=== PATIENT | female | born 1970 | race Caucasian/White ===

== ENCOUNTER → 2017-07-13 | Outpatient (CLI) | payer BC ==
[~2017-07-13] MED LIST: MULT-506 PO
--- NOTE | 2017-07-13 16:41 | MAMMOGRAPHY REPORT ---
BILATERAL DIGITAL SCREENING MAMMOGRAM TOMOSYNTHESIS WITH CAD: 07/13/2017 CLINICAL HISTORY: Routine screening. TECHNIQUE: Breast tomosynthesis in addition to standard 2D mammography was performed. Current study was also evaluated with a Computer Aided Detection (CAD) system. COMPARISON: Comparison is made to exams dated: 07/08/2015 mammogram, 07/09/2016 mammogram, 07/05/2014 ma mmogram, 06/27/2012 mammogram, 06/24/2011 mammogram, and 05/27/2010 mammogram - [facility]. BREAST COMPOSITION: The tissue of both breasts is heterogeneously dense, which may obscure small mas ses. FINDINGS: There is stable asymmetry in the medial left breast. A benign rim calcification in the lef t superior breast. No suspicious mass, architectural distortion or cluster of suspicious microcalcif ications is seen. IMPRESSION: ACR BI-RADS CATEGORY 1: NEGATIVE There is no mammographic evidence of malignancy. A 1 year screening mammogram is recommended. The pa tient will receive written notification of the results. Approximately 10% of breast cancers are not detected with mammography. A negative mammographic report should not delay biopsy if a clinically suggestive mass is present. Ely Bains M.D. ay/:07/13/2017 15:46:43 Airline Stewardess: Vitor CHANG(Leanna)(Wilfred), [facility] letter sent: Normal 1/2 BI-RADS Code: ACR BI-RADS Category 1: Negative
== END | disposition home or self-care (01) ==
LOC: C.MAMM 09:49
PROVIDERS: ATTEND Obstetrics & Gynecology
DX: Z12.31 Encounter for screening mammogram for malignant neoplasm of breast (principal)

== ENCOUNTER → 2017-07-21 | Outpatient (CLI) | payer BC | END | disposition home or self-care (01) | LOC: C.PAPS 13:31 | PROVIDERS: ATTEND Obstetrics & Gynecology | DX: Z01.419 Encounter for gynecological examination (general) (routine) without abnormal findings (principal) ==

== ENCOUNTER → 2017-08-16 | Outpatient (CLI) | payer BC ==
[2017-08-16 11:47] LABS: BASO % 0.3 %; BASO ABS # 0.03 K/uL (0-0.2); COMPLETE YES; EOS % 1.1 %; HEMATOCRIT 36.7 % (37-47); IG% 0.1 %; LYMPH % 22.5 %; LYMPH ABS # 2.01 K/uL (1.2-3.4); MEAN PLATELET VOLUME 9.4 fL (7.4-10.4); MONO % 7.2 %; NEUT % 68.8 %; PLATELET COUNT 320 K/uL (130-400); RED BLOOD COUNT 4.32 M/uL (4.2-5.4); WHITE BLOOD COUNT 8.93 K/uL (4.8-10.8)
[2017-08-16 11:58] LABS: BLOOD UREA NITROGEN 14 mg/dl (7-18); BUN/CREATININE RATIO 22.6 (10-20); CALCIUM 8.8 mg/dl (8.5-10.1); CARBON DIOXIDE 27 mmol/L (21-32); CHLORIDE 106 mmol/L (98-107); CREATININE 0.63 mg/dl (0.60-1.20); GLUCOSE 98 mg/dl (70-99); POTASSIUM 4.1 mmol/L (3.5-5.1); SODIUM 140 mmol/L (136-145)
[2017-08-16 12:08] LABS: CHOLESTEROL 172 mg/dl (0-200); CHOLESTEROL/HDL RATIO 2.1; HDL CHOLESTEROL 82 mg/dl; LDL CHOLESTEROL CALCULATED 77 mg/dl; TRIGLYCERIDES 67 mg/dl (0-150); VERY LOW DENSITY LIPOPROT CALC 13 mg/dl
== END | disposition home or self-care (01) ==
LOC: C.LABPBG 09:24
PROVIDERS: ATTEND Physician Assistant Medical
DX: Z00.00 Encounter for general adult medical examination without abnormal findings (principal)

== ENCOUNTER → 2017-10-27 | Outpatient (CLI) | payer BC | END | disposition home or self-care (01) | LOC: C.PATHSPEC 13:16 | PROVIDERS: ATTEND Obstetrics & Gynecology | DX: L98.9 Disorder of the skin and subcutaneous tissue, unspecified (principal) ==

== ENCOUNTER 2018-07-01 08:03 | Emergency (ER) | payer BC ==
[~2018-07-01] VITALS: Ht 165.1 cm; Wt 56.0 kg
[2018-07-01 08:07] VITALS: TEMP 36.7; Ht 165.1 cm; Wt 56.0 kg
[2018-07-01] MEDS ORDERED: ONDANSETRON INJ 2 MG/ML 2 ML VIAL IV STA ×2 (08:21→09:27)
[2018-07-01] MEDS ORDERED: HYDROmorphone INJ 0.5 MG/0.5 ML SYR IV STA (08:21)
[2018-07-01 09:00] LABS: BASO % 0.3 %; BASO ABS # 0.02 K/uL (0-0.2); EOS ABS # 0.13 K/uL (0-0.5); HEMOGLOBIN 12.3 g/dL (12.0-16.0); IG# 0.01 K/uL (0.00-0.02); LYMPH % 34.2 %; LYMPH ABS # 2.17 K/uL (1.2-3.4); MEAN CELL VOLUME 85.8 fL (80-100); MEAN CORPUSCULAR HEMOGLOBIN 27.8 pg (25-34); MEAN CORPUSCULAR HGB CONC 32.4 g/dl (32-36); MEAN PLATELET VOLUME 9.1 fL (7.4-10.4); MONO % 8.8 %; MONO ABS # 0.56 K/uL (0.11-0.59); NEUT % 54.5 %; NEUT ABS # 3.46 K/uL (1.4-6.5); PLATELET COUNT 231 K/uL (130-400); RED CELL DISTRIBUTION WIDTH SD 40.8 fL (36.4-46.3); WHITE BLOOD COUNT 6.35 K/uL (4.8-10.8)
[2018-07-01] MEDS ORDERED: ASPI-390 PO (09:06)
[2018-07-01 09:16] LABS: CALCIUM 9.3 mg/dl (8.5-10.1); CREATININE 0.67 mg/dl (0.60-1.20); POTASSIUM 3.8 mmol/L (3.5-5.1)
[2018-07-01] MEDS ORDERED: METOCLOPRAMIDE HCL INJ 5 MG/ML 2 ML VIAL IV STA (10:18)
[2018-07-01] MEDS ORDERED: DiphenhydrAMINE HCL 50 MG/ML VIAL IV STA (10:18)
[2018-07-01] MEDS ORDERED: GADAVIST IV PRN (11:00)
--- NOTE | 2018-07-01 11:23 | DIAGNOSTIC IMAGING REPORT ---
LUMBAR SPINE COMBINATION CLINICAL HISTORY: 48 years-old Female presenting with severe left leg pain, foot numbness, left leg pain radiating into the tailbone, left foot numbness for 4 weeks now increasing. TECHNIQUE: Multisequence, multiplanar MR imaging of the lumbar spine was performed before and after the administration of intravenous contrast. IV contrast: 5.5 mL of Gadavist. COMPARISON: None. FINDINGS: Localizer images: Cyst suggested of the spinal canal at the level of L4-5. Hepatic cysts noted. At the level of L4-5, there is a T1 hypointense, T2 hyperintense intrathecal cystic lesion measuring 3.1 x 1.8 x 1.6 cm. This is peripherally enhancing but largely cystic. The wall of this cyst doesn't enhance and measures up to 3 mm in thickness (series 10 image 22). This does not contain fat. This exerts mass effect on surrounding nerve roots resulting in displacement of the cauda equina peripherally. 6 mm of grade 1 anterolisthesis of L4 on L5. Otherwise normal lordosis. Vertebral bodies maintain normal height and bone marrow signal intensity. Intervertebral disc height loss with desiccation at L4-5. At this level, there is an annular fissure with a superiorly directed disc bulge. This does not result in significant spinal canal effacement. Anterolisthesis combined with mild facet arthropathy results in mild bilateral neural foraminal narrowing. Remaining levels do not demonstrate significant degenerative change. Spinal cord in setting good position at the level of L1. Cauda equina normal apart from this placement at the level of the L4-5 cyst. Postcontrast imaging demonstrates no abnormal enhancement of the cauda equina. Remaining visualized soft tissues remarkable for nonspecific subcutaneous edema in the lumbar region. IMPRESSION: Largely cystic intrathecal lesion at the level of L4-5 with resulting significant displacement of the cauda equina. Correlate clinically to exclude cauda equina impingement though this is felt to be unlikely given the suspected chronicity of this cystic lesion. The degree of peripheral wall enhancement is greater than would be expected for a simple spinal arachnoid cyst. Given that this level also demonstrates anterolisthesis with facet arthropathy, it is possible that this could represent an intradural extension of a synovial cyst. Additionally, other diagnostic considerations include an epidermoid cyst or a cystic neoplasm. This requires neurosurgical consultation and potential imaging follow-up. The report will be called/faxed according to standard departmental protocol. Electronically signed by: Jorge Valenzuela M.D. 07/01/2018 11:22 AM Dictated Date/Time: 07/01/2018 11:07 AM
[2018-07-01] MEDS ORDERED: ONDA4TAB10 SL (13:18)
[2018-07-01] MEDS ORDERED: OXYC-90 PO (13:18)
[2018-07-01 13:34] VITALS: BP 111/70; PULSE 60; O2SAT 98
--- NOTE | 2018-07-01 17:16 | EMERGENCY ROOM VISIT NOTE ---
History Report prepared by Jaron: Laya Lowry Under the Supervision of: Dr. Martin Clark M.D. First contact with patient: 08:10 Chief Complaint: LEG PAIN,LEG INJURY Stated Complaint: SEVERE LEG AND TAILBONE PAIN History of Present Illness The patient is a 48 year old female who presents to the Emergency Room with complaints of worsening left leg pain that onset in the end of May. The patient states that 2 days before the pain began she was sitting on a hardwood floor which started her pain, but notes that the pain went away soon after. She notes that the next day she woke up and couldn't walk. She states that recently the pain has been keeping her awake at night. The patient notes that she saw her PCP on 06/13/2018, who suggested she attend physical therapy. The patient notes that the pain originates in her back left leg and "shoots" into her tailbone. She currently rates this pain as an 8/10 in severity, but notes that that its worst, it is rated a 10/10. She describes this as a pulling and tearing pain. She states that laying down and exertion during physical therapy exacerbates the pain. The patient notes that sitting upright and Excedrin Migraine alleviates the pain. The patient complains of numbness on the outside of her foot in her toes, nausea, occasional weakness, chills that onset yesterday, a slight increase in urination frequency, and left sided tooth pain. The patient denies trauma, LOC, headache, neck pain, fevers, malaise, night sweats, weight loss, history of malignancy, chest pain, breathing difficulties, abdominal pain, saddle parasthesias, lower back pain, right leg pain, bowel or bladder dysfunction, incontinence, or other complaints. She notes that she took Excedrin and Tylenol today to "take the edge off". The patient notes that she has a history of heart palpitations. She denies any surgeries. Source of History: patient Onset: End may Position: leg (left) Symptom Intensity: Currently an 8/10, at the worst is a 10/10 Quality: other (pulling and tearing) Timing: worsening Modifying Factors (Worsening): exertion, other (laying flat ) Modifying Factors (Relieving): other (Sitting up, Excedrin) Associated Symptoms: + chills, + nausea, + urinary symptoms (increased frequency), + weakness, + numbness (outside of food in toes) Note: The patient complains of left sided tooth pain. Review of Systems See HPI for pertinent positives and negatives. A total of ten systems were reviewed and were otherwise negative. Past Medical & Surgical Medical Problems: (1) Palpitations Family History FH: HTN (hypertension) FH: cancer FH: diabetes mellitus FH: heart disease FH: seizures Social History Smoking Status: Never Smoker Alcohol Use: none Housing Status: lives with family Occupation Status: employed Current/Historical Medications Scheduled Ondasetron Odt (Zofran Odt), 4 MG SL Q6H Scheduled PRN Pkaebqf-Pgfchkpfwpzwn-Yftifyna (Excedrin Migraine), 1 TAB PO DIRECTED PRN for Migraine Oxycodone Ir (Roxicodone Ir), 1-2 TAB PO Q4H PRN for Pain Allergies Coded Allergies: No Known Allergies (Verified , 07/17/11) Physical Exam Vital Signs Date Time Temp Pulse Resp B/P (MAP) Pulse Ox O2 Delivery O2 Flow Rate FiO2 07/01/18 13:34 60 18 111/70 98 07/01/18 12:05 53 16 103/62 99 Room Air 07/01/18 10:55 65 18 116/72 99 Room Air 07/01/18 08:49 95 07/01/18 08:07 36.7 65 16 130/79 100 Room Air Physical Exam GENERAL: Awake, alert, well-appearing, in no distress HENT: Normocephalic, atraumatic. Oropharynx unremarkable. EYES: Normal conjunctiva. Sclera non-icteric. NECK: Supple. No nuchal rigidity. FROM. No masses. RESPIRATORY: Clear to auscultation. No wheezes. No rales. Normal respiratory effort. CARDIAC: Normal rate. Normal rhythm. No murmurs. No rubs. Extremities warm and well perfused. Pulses equal. No JVD. GI: Soft, non-distended. No tenderness to palpation. No rebound or guarding. No masses. RECTAL: Deferred. MUSCULOSKELETAL: Atraumatic. Chest examination reveals no tenderness. The back is symmetrical on inspection without obvious abnormality. There is no CVA tenderness to palpation. No joint edema. LOWER EXTREMITIES: Calves are equal size bilaterally and non-tender. No edema. No discoloration. NEURO: Subjective tingling in her left lateral foot, otherwise normal sensorium. No sensory or motor deficits noted. Positive left straight leg raise. No saddle anesthesia. SKIN: No rash or jaundice noted. Medical Decision & Procedures ER Provider Diagnostic Interpretation: Radiology results as stated below per my review and radiologist interpretation: LUMBAR SPINE COMBINATION CLINICAL HISTORY: 48 years-old Female presenting with severe left leg pain, foot numbness, left leg pain radiating into the tailbone, left foot numbness for 4 weeks now increasing. TECHNIQUE: Multisequence, multiplanar MR imaging of the lumbar spine was performed before and after the administration of intravenous contrast. IV contrast: 5.5 mL of Gadavist. COMPARISON: None. FINDINGS: Localizer images: Cyst suggested of the spinal canal at the level of L4-5. Hepatic cysts noted. At the level of L4-5, there is a T1 hypointense, T2 hyperintense intrathecal cystic lesion measuring 3.1 x 1.8 x 1.6 cm. This is peripherally enhancing but largely cystic. The wall of this cyst doesn't enhance and measures up to 3 mm in thickness (series 10 image 22). This does not contain fat. This exerts mass effect on surrounding nerve roots resulting in displacement of the cauda equina peripherally. 6 mm of grade 1 anterolisthesis of L4 on L5. Otherwise normal lordosis. Vertebral bodies maintain normal height and bone marrow signal intensity. Intervertebral disc height loss with desiccation at L4-5. At this level, there is an annular fissure with a superiorly directed disc bulge. This does not result in significant spinal canal effacement. Anterolisthesis combined with mild facet arthropathy results in mild bilateral neural foraminal narrowing. Remaining levels do not demonstrate significant degenerative change. Spinal cord in setting good position at the level of L1. Cauda equina normal apart from this placement at the level of the L4-5 cyst. Postcontrast imaging demonstrates no abnormal enhancement of the cauda equina. Remaining visualized soft tissues remarkable for nonspecific subcutaneous edema in the lumbar region. IMPRESSION: Largely cystic intrathecal lesion at the level of L4-5 with resulting significant displacement of the cauda equina. Correlate clinically to exclude cauda equina impingement though this is felt to be unlikely given the suspected chronicity of this cystic lesion. The degree of peripheral wall enhancement is greater than would be expected for a simple spinal arachnoid cyst. Given that this level also demonstrates anterolisthesis with facet arthropathy, it is possible that this could represent an intradural extension of a synovial cyst. Additionally, other diagnostic considerations include an epidermoid cyst or a cystic neoplasm. This requires neurosurgical consultation and potential imaging follow-up. The report will be called/faxed according to standard departmental protocol. Electronically signed by: Jorge Valenzuela M.D. 07/01/2018 11:22 AM Dictated Date/Time: 07/01/2018 11:07 AM Laboratory Results 07/01/18 08:43 Red Blood Count 4.43, Mean Corpuscular Volume 85.8, Mean Corpuscular Hemoglobin 27.8, Mean Corpuscular Hemoglobin Concent 32.4, Mean Platelet Volume 9.1, Neutrophils (%) (Auto) 54.5, Lymphocytes (%) (Auto) 34.2, Monocytes (%) (Auto) 8.8, Eosinophils (%) (Auto) 2.0, Basophils (%) (Auto) 0.3, Neutrophils # (Auto) 3.46, Lymphocytes # (Auto) 2.17, Monocytes # (Auto) 0.56, Eosinophils # (Auto) 0.13, Basophils # (Auto) 0.02 07/01/18 08:43 Test 07/01/18 08:43 White Blood Count 6.35 K/uL (4.8-10.8) Red Blood Count 4.43 M/uL (4.2-5.4) Hemoglobin 12.3 g/dL (12.0-16.0) Hematocrit 38.0 % (37-47) Mean Corpuscular Volume 85.8 fL (80-100) Mean Corpuscular Hemoglobin 27.8 pg (25-34) Mean Corpuscular Hemoglobin Concent 32.4 g/dl (32-36) Platelet Count 231 K/uL (130-400) Mean Platelet Volume 9.1 fL (7.4-10.4) Neutrophils (%) (Auto) 54.5 % Lymphocytes (%) (Auto) 34.2 % Monocytes (%) (Auto) 8.8 % Eosinophils (%) (Auto) 2.0 % Basophils (%) (Auto) 0.3 % Neutrophils # (Auto) 3.46 K/uL (1.4-6.5) Lymphocytes # (Auto) 2.17 K/uL (1.2-3.4) Monocytes # (Auto) 0.56 K/uL (0.11-0.59) Eosinophils # (Auto) 0.13 K/uL (0-0.5) Basophils # (Auto) 0.02 K/uL (0-0.2) RDW Standard Deviation 40.8 fL (36.4-46.3) RDW Coefficient of Variation 13.0 % (11.5-14.5) Immature Granulocyte % (Auto) 0.2 % Immature Granulocyte # (Auto) 0.01 K/uL (0.00-0.02) Urine Color YELLOW Urine Appearance CLEAR (CLEAR) Urine pH 5.0 (4.5-7.5) Urine Specific [place] 1.018 (1.000-1.030) Urine Protein NEG (NEG) Urine Glucose (UA) NEG (NEG) Urine Ketones NEG (NEG) Urine Occult Blood NEG (NEG) Urine Nitrite NEG (NEG) Urine Bilirubin NEG (NEG) Urine Urobilinogen NEG (NEG) Urine Leukocyte Esterase TRACE (NEG) Urine WBC (Auto) 1-5 /hpf (0-5) Urine RBC (Auto) 0-4 /hpf (0-4) Urine Hyaline Casts (Auto) 1-5 /lpf (0-5) Urine Epithelial Cells (Auto) >30 /lpf (0-5) Urine Bacteria (Auto) NEG (NEG) Anion Gap 7.0 mmol/L (3-11) Est Creatinine Clear Calc Drug Dose 90.8 ml/min Estimated GFR () 120.5 Estimated GFR (Non- 103.9 BUN/Creatinine Ratio 23.5 (10-20) Calcium Level 9.3 mg/dl (8.5-10.1) Laboratory results reviewed by me Medications Administered Medications (Trade) Dose Ordered Sig/Chi Route Start Time Stop Time Status Last Admin Dose Admin Ondansetron HCl (Zofran Inj) 4 mg NOW STAT IV 07/01/18 08:21 07/01/18 08:32 DC 07/01/18 08:54 4 MG Hydromorphone HCl (Dilaudid Inj) 0.5 mg NOW STAT IV 07/01/18 08:21 07/01/18 08:32 DC 07/01/18 08:55 0.5 MG Ondansetron HCl (Zofran Inj) 4 mg NOW STAT IV 07/01/18 09:27 07/01/18 09:29 DC 07/01/18 09:36 4 MG Diphenhydramine HCl (Benadryl Inj) 25 mg NOW STAT IV 07/01/18 10:18 07/01/18 10:20 DC 07/01/18 10:30 25 MG Metoclopramide HCl (Reglan Inj) 5 mg NOW STAT IV 07/01/18 10:18 07/01/18 10:20 DC 07/01/18 10:30 5 MG ED Course 0816: The patient was evaluated in room A02. A complete history and physical exam was performed. 08: Ordered Zofran Inj 4 mg IV, Dilaudid Inj 0.5 mg IV. 0926: The patient reports nausea. Will give Zofran. 0927: Ordered Zofran Inj 4 mg IV. 1017: The patient got nauseous in MRI despite the Zofran. Will Order Benadryl and Reglan. 1018: Ordered Reglan Inj 5 mg IV, Benadryl Inj 25 mg IV. 1035: Upon reexamination, the patient was resting comfortably. I discussed the test results and treatment plan with her. The patient will be evaluated for further management. 1100: Ordered Gadavist 5.5 mmol IV. 1128: Upon reexamination, the patient was resting comfortably. I discussed the test results and treatment plan with her. The patient will be evaluated for further management. 1137: Discussed the patient's case with Dr. Ho- [facility]. He recommended a neuro surgery consultation. 1210: I updated the patient and discussed the findings with her. She initially requested neurosurgery at [place]. I will see if they are available. 1237: Discussed the patient's case with Dr. Cuevas- Neuro Surgery [place]. He will see her on Wednesday at 0900, unless something changes. 1249: I reevaluated the patient. Discussed results and discharge instructions: she verbalized understanding and agreement. The patient is ready for discharge. Medical Decision Prior records/ancillary studies reviewed. Triage Nursing notes reviewed and agree them. Additional history obtained from the family. The patient's history was concerning for back pain. Differential diagnosis: Etiologies such as fracture, aortic disease, metastatic disease, cord compression, discitis, infection, renal colic, gastrointestinal, lumbago, sciatica, cauda equina, as well as others were entertained. Physical findings: As above. Mildly positive straight leg raise. ER treatment provided: IV Dilaudid IV Zofran times multiple doses Patient was having nausea during MRI Benadryl and Reglan On reassessment the patient felt better. Diagnostics interpreted by me: The labs revealed an unremarkable CBC and chemical panel. Urinalysis negative. Imaging studies: MRI as above. Consultation: I did discuss case with of orthopedic spine. Because the lesion was intrathecal he felt that the patient would be best served by neurosurgery. I did consult with Dr. Parker starks [facility] neurosurgery. I did discuss the case, history, and diagnostic findings. The recommendation was for symptom [id number] and to follow-up promptly in his office Wednesday morning at 9 AM. He advised to educate the patient for any worsening signs and symptoms symptoms to suggest cauda equina syndrome and for her to return to ER immediately for any such symptoms. The patient was educated. She feels comfortable with going home. Because she has had issues with nausea from narcotics in the past the patient was given a prescription of Zofran and shows oxycodone since she had significant nausea and vomiting with hydrocodone in the past. By the evaluation outlined above other emergent etiologies such as those listed in the differential, as well as others, were deemed relatively unlikely. The patient was educated about the findings as listed above. All questions were answered and the patient was pleased with the treatment. Return instructions were outlined and the patient was discharged in stable condition. The patient was referred to neurosurgery for follow-up for a recheck of the current condition. Medication Reconcilliation Current Medication List: was personally reviewed by me Blood Pressure Screening Patient's blood pressure: Normal blood pressure Consults Time Called: [phone] Consulting Physician: Dr. Kvng [facility]. Returned Call: [phone]: Discussed the patient's case with Dr. Kvng [facility]. He recommended a neuro surgery consultation. Additional Consults: Time Called: [phone] Consulted Physician: Dr. Kuldip Kim Returned Call: [phone] Additional Comments: 1237: Discussed the patient's case with Dr. Kuldip Kim. He will see her on Wednesday at 0900, unless something changes. Impression Primary Impression: intrathecal cystic lesion Additional Impressions: Leg pain Leg numbness Scribe Attestation The scribe's documentation has been prepared under my direction and personally reviewed by me in its entirety. I confirm that the note above accurately reflects all work, treatment, procedures, and medical decision making performed by me. Departure Information Dispostion Home / Self-Care Prescriptions Ondasetron Odt (ZOFRAN ODT) 4 Mg Tab 4 MG SL Q6H for Nausea, #10 TAB Prov: Martin Clark MD 07/01/18 Oxycodone Ir (Roxicodone Ir) 5 Mg Tab 1-2 TAB PO Q4H Y for Pain, #15 TAB Prov: Martin Clark MD 07/01/18 Referrals Nadeem Arellano M.D. (PCP) Forms HOME CARE DOCUMENTATION FORM, IMPORTANT VISIT INFORMATION Patient Instructions My [facility] Additional Instructions DO NOT drive, drink alcohol, operate machinery, or perform dangerous activities today. You were given medications in the ER that can affect your ability to safely function or operate a vehicle. Oxycodone (OxyIR) 5mg: Take 1-2 pills every four hours for breakthrough pain. Avoid alcohol, operating machinery or dangerous equipment, working on ladders or roofs, DRIVING, or situations where being under the influence may be dangerous. It is recommended to use an ezxe-rtz-rjaufcl stool softener such as Colace, 100mg twice daily while taking this medication to avoid constipation. Zofran 4 mg oral dissolving tablets: take one tablet and allow it to melt in your mouth every 4 hours as needed for nausea. Ibuprofen(Motrin, Advil) may be used for fever or pain. Use 600mg every six hours as needed. Take with food. Avoid using more than 2400mg in a 24 hour period. Do not use 2400mg per day for more than three consecutive days without physician direction. Prolonged inappropriate use can lead to stomach upset or ulcers. This medication can be taken if you need to drive, work, or perform activities which may be dangerous when taking narcotic pain medication. (AND/OR) Acetaminophen(Tylenol) may be used for fever or pain. Use 1000mg every six hours as needed. Avoid using more than 4000mg in a 24 hour period. This medication can be taken if you need to drive, work, or perform activities which may be dangerous when taking narcotic pain medication. Rest and avoid heavy lifting until your symptoms resolve and then gradually return to full activity. A good rule of thumb is if it hurts your back to perform a certain activity, then it should be avoided until you are healthy again. A heating pad, warm compresses, or a hot shower may help with tight muscles and can be done several times a day as needed. Continue current medications. Return to the ER immediately for any numbness, tingling, severe pain, loss of control of your bowels or bladder, inability to walk, or as needed. Follow up with Dr. Canales of [place] neurosurgery Wednesday morning at 9 AM. His office phone number is [phone]. You can call them today for directions and further instructions. Take your imaging with you for the appointment. Problem Qualifiers
[2018-07-02] MEDS ORDERED: ACET-1311 PO (14:50)
[2018-07-02] MEDS ORDERED: IMETREX PO (14:50)
[2018-07-02] MEDS ORDERED: NRN/100 PO (19:02)
[2018-07-02] MEDS ORDERED: METH4PAK PO (19:02)
== END 2018-07-01 13:35 | disposition home or self-care (01) ==
LOC: C.EDB 08:03 → C.EDA 13:35
DX: G95.9 Disease of spinal cord, unspecified (principal); M79.605 Pain in left leg; R20.0 Anesthesia of skin; Z83.3 Family history of diabetes mellitus

== ENCOUNTER 2018-07-02 13:31 | Emergency (ER) | payer BC ==
[~2018-07-02] VITALS: Ht 167.6 cm; Wt 47.7 kg
[~2018-07-02 13:31] MED LIST changes: +ASPI-390 PO; -MULT-506 PO; +ONDA4TAB10 SL; +OXYC-90 PO
[2018-07-02 13:41] VITALS: TEMP 36.4; Ht 167.6 cm; Wt 47.7 kg
[2018-07-02] MEDS ORDERED: DiphenhydrAMINE HCL 50 MG/ML VIAL IV STA (14:17)
[2018-07-02] MEDS ORDERED: SODIUM CHLORIDE 0.9% 1000ML 1,000 ML IV STA (14:17)
[2018-07-02] MEDS ORDERED: PROCHLORPERAZINE 5 MG/ML 2 ML VIAL IV STA (14:17)
--- NOTE | 2018-07-02 14:25 | EMERGENCY ROOM VISIT NOTE ---
History First contact with patient: 14:06 Chief Complaint: LEG PAIN,LEG INJURY Stated Complaint: L LEG PAIN MIGRAINE History of Present Illness The patient is a 48 year old female who presents to the Emergency Room with complaints of worsening left lower extremity numbness. Patient was seen and evaluated here yesterday and found on MRI to have a cyst in her low back. Patient states she has had worsening leg and buttock pain over the last month. Was seen by her PCP as an outpatient and sent for physical therapy. When that did not help she was ultimately sent for x-rays. Given worsening symptoms yesterday she had an MRI performed. States ER doctor yesterday did discuss her case with a neurosurgeon in [place], Dr. Canales, and she is scheduled to see the neurosurgeon Wednesday morning at 9 AM. Patient states since discharge she has been using her medications as prescribed which included Zofran and oxycodone. Patient states she was also taking some additional Tylenol. Patient states she was unable to sleep very much overnight due to the persistent pain and numbness. Patient states this morning when she also awoke with a migraine. Patient has a chronic migraine history which usually treats with Excedrin. States her headache is mildly worse than usual migraine, but in the usual location and has the usual coming symptoms. Patient has never had a complex migraine to her knowledge. Patient denies vision changes or dizziness, states she felt very shaky and nauseated this morning. Patient states she took some of her mother's Imitrex this morning to try and help with migraine, but this did not help her headache and her legs continue to feel worse. Patient states her entire leg now feels very heavy and slightly tingly, and she feels it is making more difficult to walk. Patient denies any incontinence. Patient states she is constipated but that is not unusual for her, especially with taking pain medication. Source of History: patient Onset: past month Position: other (LLE) Quality: numbness Timing: worsening Associated Symptoms: + headache Note: Associated symptoms: decreased sleep, left leg and buttock pain, constipated, trouble walking Denies: vision changes, dizziness, incontinence Review of Systems See HPI for pertinent positives & negatives. A total of 10 systems reviewed and were otherwise negative. Past Medical/Surgical History Medical Problems: (1) Palpitations Family History FH: HTN (hypertension) FH: cancer FH: diabetes mellitus FH: heart disease FH: seizures Social History Smoking Status: Never Smoker Alcohol Use: none Housing Status: lives with family Occupation Status: employed Current/Historical Medications Scheduled Gabapentin (Neurontin), 100 MG PO Q8 Methylprednisolone (Medrol Dosepak), 1 UNIT PO DAILY Ondasetron Odt (Zofran Odt), 4 MG SL Q6H [Imetrex], 2 TAB PO UD Scheduled PRN Acetaminophen (Tylenol), 325 MG PO Q6H PRN for Headache or Pain Desfhyd-Nqwphxehdgqso-Kcshmiso (Excedrin Migraine), 1 TAB PO DIRECTED PRN for Migraine Oxycodone Ir (Roxicodone Ir), 1-2 TAB PO Q4H PRN for Pain Physical Exam Vital Signs Date Time Temp Pulse Resp B/P (MAP) Pulse Ox O2 Delivery O2 Flow Rate FiO2 07/02/18 20:05 60 18 120/75 100 Room Air 07/02/18 19:20 60 18 127/79 100 Room Air 07/02/18 17:23 70 16 127/79 99 Room Air 07/02/18 13:41 36.4 60 20 133/83 100 Room Air Physical Exam GENERAL: alert, well appearing, well nourished, no distress, non-toxic EYE EXAM: normal conjunctiva, PERRL and EOM's grossly intact OROPHARYNX: no exudate, no erythema, lips, buccal mucosa, and tongue normal and mucous membranes are moist NECK: supple, no nuchal rigidity, no adenopathy, non-tender LUNGS: Clear to auscultation. Normal chest wall mechanics, no w/r/r HEART: no murmurs, S1 normal and S2 normal ABDOMEN: abdomen soft, non-tender, normo-active bowel sounds, no masses, no rebound or guarding. BACK: Back is symmetrical on inspection and there is no deformity, no midline tenderness, no CVA tenderness. SKIN: no rashes and no bruising UPPER EXTREMITIES: upper extremities are grossly normal. LOWER EXTREMITIES: No pitting edema. Pain to the proximal posterior aspect of the left lower extremity. Patient states this is the area of maximum pain which then radiates up into her upper buttock and sacrum. Patient able to lift her left lower extremity up off the bed. Subjective sensory changes to the left leg, none on objective testing. NEURO EXAM: Normal sensorium, cranial nerves II-XII grossly intact, normal speech, no gross weakness of arms, no gross weakness of legs. Gross sensation intact. Normal Babinski's bilaterally. Medical Decision & Procedures Medications Administered Medications (Trade) Dose Ordered Sig/Chi Route Start Time Stop Time Status Last Admin Dose Admin Sodium Chloride 1,000 ml @ 999 mls/hr Q1H1M STAT IV 07/02/18 14:17 07/02/18 15:17 DC 07/02/18 14:40 999 MLS/HR Prochlorperazine Edisylate (Compazine Inj) 5 mg NOW STAT IV 07/02/18 14:17 07/02/18 14:19 DC 07/02/18 14:40 5 MG Diphenhydramine HCl (Benadryl Inj) 12.5 mg NOW STAT IV 07/02/18 14:17 07/02/18 14:19 DC 07/02/18 14:40 12.5 MG Hydromorphone HCl (Dilaudid Inj) 1 mg Q15M PRN IV 07/02/18 14:30 07/02/18 21:01 DC 07/02/18 14:58 1 MG Dexamethasone Sodium Phosphate 10 mg/Syringe 2.5 ml @ 1 mls/min ONE STAT IV 07/02/18 15:14 07/02/18 15:16 DC 07/02/18 15:45 1 MLS/MIN Gabapentin (Neurontin Cap) 100 mg NOW STAT PO 07/02/18 15:14 07/02/18 15:16 DC 07/02/18 15:45 100 MG Ondansetron HCl 8 mg/Dextrose 54 ml @ 216 mls/hr TODAY@1738 IV 07/02/18 17:38 07/02/18 18:30 DC 07/02/18 18:14 216 MLS/HR Diazepam (Valium Inj) 5 mg STK-MED ONCE .ROUTE 07/02/18 18:08 07/02/18 18:09 DC 07/02/18 18:14 2.5 MG ED Course 1408: The patient was evaluated in room A04B. A complete history and physical exam was performed. 1417: Ordered Benadryl 12.5mg IV, Compazine 5mg IV, Sodium Chloride 1000 ml @ 999 mls/hr IV 1430: Ordered Dilaudid 1mg IV 1440: Ordered Toradol 15mg IV 1500: Patient states still having pain, slightly improved, appears shaky and anxious. 1514: Neurontin 100mg PO, Dexamethasone Sodium Phosphate 10mg/Syringe 2.5ml @ 1 mls/min 1517: Discussed case with Dr. Canales. Would suggest adding decadron and dc on a medrol dose pack. Can add gabapentin if needed. 1614: Patient states pain only mildly improved. Has received additional medications at this time. Updated on conversation with Dr. Canales. 1738: Ordered Ondansetron HCl 8mg/Dextrose 54 ml @ 216 mls/hr IV 1808: Ordered Valium 5mg IV 1854: Upon reevaluation, the patient is feeling better. I discussed the findings and the treatment plan with the patient. She verbalizes agreement and understanding. The patient will be discharged home after receiving her medication. 2100: Ordered Gabapentin 100mg PO x 2 Medical Decision Differential diagnoses includes but is not limited to lumbar radiculopathy, muscle strain, facture, cauda equina, mass, and disc herniation. Patient with MRI performed yesterday those results were reviewed. Patient already has an appointment with neurosurgery for Wednesday at 9 AM. Patient back due to increased pain and subjective sensory changes, also now with concurrent migraine headache likely from difficulty sleeping overnight due to pain. The patient's overall lower extremity findings have been evolving over the course of the last 4-6 weeks, they have become markedly worse in the last several days which prompted the MRI yesterday and discussion with neurosurgery at [place]. Dr. Canales does not feel she needs emergent transfer intervention at this time, and give recommendations for additional medications which could be added to help her be more comfortable until he can evaluate her Wednesday at 9 AM. Patient was improved here and was monitored for several hours as a precaution to watch for any other evolving symptoms. Patient had no other evolving findings or symptoms concerning for acute cauda equina or other acute neurosurgical emergency. Patient's headache was improved with additional medications and IV fluids also. Patient given to gabapentin tablets to take home. Instructed on use of additional medications, continued use of pain medication she was given yesterday, symptoms to watch and return for , diet and hydration, activity, she verbalized understanding was agreeable with plan. Patient hemodynamically stable throughout. Labs reviewed from yesterday. Patient with no symptoms to otherwise suggest occult UTI or obstructive uropathy. I do not suspect acute vascular pathology. Do not feel patient needed repeat labs as those from yesterday were unremarkable. Patient with known history of migraines also, no changes in her headache today that I felt were suggestive of other etiology for her headache or need for additional neuroimaging. Patient has previously had CAT scans and MRIs according to her report which were unremarkable. Medication Reconcilliation Current Medication List: was personally reviewed by me Blood Pressure Screening Patient's blood pressure: Normal blood pressure Blood pressure disposition: Did not require urgent referral Consults Time Called: 1500 Consulting Physician: Neurosurgery, [facility] Dr. Parker Kim Returned Call: [phone] Canales. Would suggest adding decadron and dc on a medrol dose pack. Can add gabapentin if needed. Impression Primary Impression: Leg numbness Additional Impressions: Leg pain, left Migraine headache Departure Information Dispostion Home / Self-Care Condition GOOD Prescriptions Gabapentin (Neurontin) 100 Mg Cap 100 MG PO Q8 for Pain, #30 CAP Prov: Rossana Morin, DO 07/02/18 Methylprednisolone (MEDROL DOSEPAK) 4 Mg Wilmer 1 UNIT PO DAILY, #1 PKT Prov: Rossana Morin, DO 07/02/18 Referrals Nadeem Arellano M.D. (PCP) Forms HOME CARE DOCUMENTATION FORM, IMPORTANT VISIT INFORMATION Patient Instructions My [facility] Additional Instructions Please keep your appointment with Dr. Canales Wednesday. Please limit your activity until he otherwise gives you additional instructions. He may continue using the nausea medication and stronger pain medication that you were given yesterday. Please start taking the steroid pack tomorrow. You may use the gabapentin every 8 hours in addition for nerve pain. Please try to eat small meals at frequent intervals and drink plenty of water to stay well-hydrated. Please consider starting an xygm-oey-kgyrhbg stool softener and add MiraLAX daily to help prevent additional constipation from the pain medication. Please do not drive while taking all these medications. If you develop any new or concerning symptoms, become incontinent, notice numbness or tingling in the area of your groin or genitals, develop fevers, vomiting, or unable to walk, you have any other new or concerning symptoms, please return the emergency room. Problem Qualifiers Additional Impressions: Migraine headache Migraine type: with aura Status migrainosus presence: without status migrainosus Intractability: not intractable Qualified Codes: G43.109 - Migraine with aura, not intractable, without status migrainosus
[2018-07-02] MEDS ORDERED: HYDROmorphone INJ 1 MG/ML SYR IV PRN (14:30)
[2018-07-02] MEDS ORDERED: KETOROLAC TROMETHAMINE 30 MG/ML VIAL IV STA (14:40)
[2018-07-02] MEDS ORDERED: IMETREX PO (14:50)
[2018-07-02] MEDS ORDERED: ACET-1311 PO (14:50)
[2018-07-02] MEDS ORDERED: DEXAMETHASONE INJ 10 MG in SYRINGE 0 ML IV STA (15:14)
[2018-07-02] MEDS ORDERED: GABAPENTIN 100 MG CAP PO STA (15:14)
[2018-07-02] MEDS ORDERED: DEXAMETHASONE SOD INJ 10 MG/ML VIAL ONE (15:40)
[2018-07-02] MEDS ORDERED: DIAZEPAM INJ 5 MG/ML 2 ML CARP IV STA (17:37)
[2018-07-02] MEDS ORDERED: ONDANSETRON 8 MG/54 ML D5W IV STA (17:37)
[2018-07-02] MEDS ORDERED: ONDANSETRON INJ 8 MG in DEXTROSE 5% 50ML 50 ML IV SCH (17:38)
[2018-07-02] MEDS ORDERED: DIAZEPAM 5 MG/ML INJ 10ML VIAL ONE (18:08)
[2018-07-02] MEDS ORDERED: METH4PAK PO (19:02)
[2018-07-02] MEDS ORDERED: NRN/100 PO (19:02)
[2018-07-02 20:05] VITALS: BP 120/75; PULSE 60; O2SAT 100
[2018-07-02] MEDS ORDERED: GABAPENTIN 100 MG CAP PO SCH ×2 (21:00)
== END 2018-07-02 20:10 | disposition home or self-care (01) ==
LOC: C.EDB 13:32 → C.EDA 20:10
DX: R20.0 Anesthesia of skin (principal); M79.605 Pain in left leg; G43.109 Migraine with aura, not intractable, without status migrainosus